=== PATIENT | female | born 1995 | race Caucasian/White ===

== ENCOUNTER → 2017-02-05 | Outpatient (CLI) | payer BC ==
[~2017-02-05] MED LIST: AMPH12.5 PO
[2017-02-09 10:37] LABS: CHLAMYDIA TRACH RNA*** NOT DETECTED (NOT DETECTED); GC (NEIS GONORRHOEAE)RNA** NOT DETECTED (NOT DETECTED)
== END | disposition home or self-care (01) ==
LOC: C.LABSPEC 13:26
PROVIDERS: ATTEND Family Medicine
DX: Z11.3 Encounter for screening for infections with a predominantly sexual mode of transmission (principal)

== ENCOUNTER → 2017-02-05 | Outpatient (CLI) | payer BC | END | disposition home or self-care (01) | LOC: C.PAPS 14:23 | PROVIDERS: ATTEND Family Medicine | DX: Z12.72 Encounter for screening for malignant neoplasm of vagina (principal) ==

== ENCOUNTER 2025-02-10 07:40 | Inpatient (IN) ==
[2025-02-10] MEDS ORDERED: LIDOCAINE 1% LOCAL 20 ML VIAL INFIL PRN (08:45)
[2025-02-10 09:11] LABS: Hematocrit (blood only) 35.0 % (37.0-47.0); Hemoglobin 12.3 g/dl (12.0-16.0); Mean Corpuscular Hemoglobin 30.5 pg (25.0-34.0); Mean Corpuscular Volume 86.8 fL (80.0-100.0); Platelet Count 252 K/uL (130-400); RDW Standard Deviation 43.6 fL (36.4-46.3); Red Blood Count 4.03 M/uL (4.20-5.40); White Blood Count 13.53 K/ul (4.8-10.8)
--- NOTE | 2025-02-10 09:14 | History & Physical Report ---
Date of Service February 10, 2025 Assessment & Plan (1) Encounter for induction of labor: Plan Admit pt; iv, labs, add pitocin as needed; Baby; FHR category I Admission and Anticipated Discharge Date Admission Date: February 10, 2025 History of Present Illness Primary Care Provider: Ariane Montanez Contractions: Negative Painful: Negative Leaky Fluid: Negative Movement: Present Pt is a 29 yo Female, , 42 wks 3 day, arrives to Labor & Delivery for induction of labor. Pt appears AOx3 and is accompanied by her to the unit and Delivery Plans ADHD *may opt to go back on meds? hep b non-immune 2 Vessel Cord * Echo [facility]-09/27/24 - nl *Serial Growth US starting @28wks *NSTs @36wks metapneumovirus at 26wks placental alvarez IOL 02/10/25 Labs: Rhesus Positive, GBS Negative Hx of STDs: Negative Allergies Allergy/AdvReac Type Severity Reaction Status Date / Time alcohol Allergy Intermediate Vomiting Verified 02/09/25 10:32 Home Medications Medication Instructions Recorded Confirmed Type famotidine 10 mg tablet 10 mg PO DAILY 02/10/25 02/10/25 History vits no.124-ferrous fum 1 tab PO DAILY 02/10/25 02/10/25 History 27 mg iron-folic acid 800 mcg tablet ( Vitamin) Patient History Medical History Varicella vaccination Anemia Fibrous dysplasia (monostotic), other site mandible Surgical History History of mandibular surgery S/P tonsillectomy and adenoidectomy S/P wisdom tooth extraction Family History Grandfather (Maternal) Alcoholism Grandmother (Maternal) Alcoholism Mother Rheumatoid arthritis Denies family history of Ovarian cancer Breast cancer Colorectal cancer Social History (Updated 02/10/25 @ 07:57 by Merari Browning RN) Smoking Status: Never smoker Do You Dip or Chew Tobacco: No; Hx Alcohol Use: No Hx Substance Use: No Preferred Language: Wallisian Visual Impairment: No Limitations Hearing Ability: Normal Sheriffs Required: No Beliefs That Will Affect Care: None marital status: Single marital status details: Phil Mckay (30) [phone] Current Living Situation: Significant Other Current Living Situation Comment: Lives with FOB- 1 cat- FOB changing litter current occupational status: employed current occupation: [employer] Tools Feels Safe at Home: Yes Safety Concerns: Feels Safe At This Time Diet: regular Dental Care, Regularly: Yes Gender Identity: Female Assistive Devices: None OB History INFORMATION ARCHITECT History No new findings Review of Systems All systems reviewed & are unremarkable except as noted in HPI & below i. Denies fever, chills, sweats ii. Denies SOB, difficulty breathing, chest pain, palpitations, chest pressure iii. Denies breast pain. iv. Denies Dysuria v. Denies headache or changes in vision. Physical Exam Constitutional: WD/WN, vitals as above Respiratory: normal respiratory effort, lungs clear to auscultation Cardiovascular: RRR, no murmur, no edema Gastrointestinal (Abdomen): normal bowel sounds, soft, nontender, no hepatosplenomegaly Skin: no rashes, warm and dry Genitourinary: As per Dr. Kilgore's attestation Results & Data Vital Signs (Past 12 Hours) Vital Signs Temp Pulse Resp BP 02/10/25 08:14 37.2 C 20 02/10/25 08:03 90 02/10/25 08:03 135/89 02/10/25 07:49 98 H 134/92 Laboratory Results Labs Lab Results OB Labs: Blood Type O Positive 07/07/24 Antibody Screen NEGATIVE 07/07/24 Hgb 11.3 g/dl (12.0-16.0) L 11/09/24 Hct 34.3 % (37.0-47.0) L 11/09/24 MCV 84.5 fL (80.0-100.0) 07/07/24 Plt Count 381 K/uL (130-400) 07/07/24 Rubella IgG Antibody Immune (Immune) 07/07/24 Treponema pallidum Ab Negative (Negative) 11/09/24 Hep Bs Antigen Negative (Negative) 07/07/24 Hepatitis C Antibody Negative (Negative) 07/07/24 HIV 1&2 Ab/P24 Ag 4thGn Negative (Negative) 07/07/24 Glucose 1 Hr 50 gm 132 mg/dl (70-130) H 11/09/24 OB Optional Labs: Chlamydia trachomatis RNA Not Detected (NotDetected) 07/08/24 Neisseria gonorrhoeae RNA Not Detected (NotDetected) 07/08/24 Thyroid Stimulating Hormone (TSH) 2.529 uIu/ml (0.300-4.500) 12/22/23 Labs Reviewed: Declines genetics--mln gbs neg Code Status & VTE Plan VTE Prophylaxis Plan VTE Prophylaxis will be ordered: No Monitoring External Monitor Baseline: 120 Variability: Moderate Accelerations: 15 x 15 Decelerations: None Tocodynamometer 1.5 to 2 minutes between contractions Supervising Physician Co-Signing Physician Notes Resident Physician Supervision Note: I interviewed and examined the patient. Discussed with Dr. Mckinney and agree with findings and plan as documented in the note. Any exceptions or clarifications are listed here: iol for postdates 41 2/7 weeks. cx 2/90/-2. complicated by 2vc. on admission, minimal contractions. fetus category one. Plan pitocin induction, arom when indicated. epidural on demand. Anticipate . Documented By: Albania Kilgore MD, FACOG Resident Activity Tracking Resident Involvement: Resident Care Provided Care Provided: OB Delivery
[2025-02-10] MEDS: LACTATED RINGER'S 1,000 ML IV PRN (09:22)
[2025-02-10] MEDS: OXYTOCIN 30 UNITS/NSS 30 UNITS/500 ML BAG IV PRN ×2 (09:28→21:59)
--- NOTE | 2025-02-10 15:29 | Labor Progress Brief Note ---
Date of Service February 10, 2025 Subjective noting contractions Assessment & Plan (1) Encounter for induction of labor: Plan continue current management, fetus category one. Admission and Anticipated Discharge Date Admission Date: February 10, 2025 Physical Exam Physical Exam: cx--2/90/-2 arom--minimal thin fluid toco--q2-3min, pit at 16 Results & Data Vital Signs (Past 12 Hours) Vital Signs Temp Pulse Resp BP 02/10/25 15:24 93 H 02/10/25 15:24 131/82 02/10/25 14:16 80 18 02/10/25 14:16 123/74 02/10/25 13:17 85 02/10/25 13:17 124/80 02/10/25 13:05 81 02/10/25 13:05 137/95 02/10/25 12:12 36.7 C 20 02/10/25 12:12 85 02/10/25 12:12 134/85 02/10/25 11:04 75 02/10/25 11:04 116/71 02/10/25 10:49 76 02/10/25 10:49 120/71 02/10/25 10:35 76 02/10/25 10:35 131/76 02/10/25 10:18 72 02/10/25 10:18 129/74 02/10/25 08:14 37.2 C 20 02/10/25 08:03 90 02/10/25 08:03 135/89 02/10/25 07:49 98 H 134/92 Coding Level of Care Code None Diagnoses Encounter for induction of labor Z34.90
[2025-02-10] MEDS ORDERED: ONDANSETRON INJ 2 MG/ML 2 ML VIAL IV PRN ×2 (15:58)
[2025-02-10] MEDS ORDERED: SODIUM CHLORIDE 0.9% PF INJ 10 ML VIAL EPI STA (15:58)
[2025-02-10] MEDS ORDERED: BUPIVACAINE 0.25% PF 30 ML VIAL EPI PRN (15:58)
[2025-02-10] MEDS ORDERED: NALOXONE HCL 1 MG in SODIUM CHLORIDE 0.9% 1,000 ML IV PRN (15:58)
[2025-02-10] MEDS ORDERED: diphenhydrAMINE 50 MG/ML VIAL IV PRN (15:58)
[2025-02-10] MEDS ORDERED: NALOXONE HCL 0.4 MG/1 ML VIAL/CARP IV PRN (15:58)
[2025-02-10] MEDS ORDERED: ROPIVACAINE 0.5% PF 5 MG/ML 20 ML VIAL EPI PRN (15:58)
[2025-02-10] MEDS ORDERED: SODIUM CHLORIDE 0.9% PF INJ 10 ML VIAL EPI PRN (15:58)
[2025-02-10] MEDS ORDERED: NALBUPHINE HCL INJ 10 MG/ML AMP IV PRN (15:58)
[2025-02-10] MEDS ORDERED: LIDOCAINE 2%/EPINEPHRINE 1:200,000 20 ML PF EPI STA (15:58)
[2025-02-10] MEDS ORDERED: LIDOCAINE 2% MPF LOCAL 5 ML VIAL EPI PRN (15:58)
[2025-02-10] MEDS ORDERED: BUPIVACAINE 0.25% PF 30 ML VIAL EPI STA (15:58)
[2025-02-10] MEDS ORDERED: fentANYL 2 MCG/ML BUPIVacaine 0.125%-NSS 100ML BAG EPI PRN (15:58)
--- NOTE | 2025-02-10 15:58 | Anesthesiology Consultation ---
Date of Service February 10, 2025 Assessment & Plan Chart Review Chart Review: Patient NOT seen in Pre Admission Testing and Acceptable Risk for Labor Epidural Consults Requested none History Height/Weight Height: 5 ft 8 in Weight: 94.846 kg Allergies Allergy/AdvReac Type Severity Reaction Status Date / Time alcohol Allergy Intermediate Vomiting Verified 02/09/25 10:32 Medications Home Medications Medication Instructions Recorded Confirmed Last Taken famotidine 10 mg tablet 10 mg PO DAILY 02/10/25 02/10/25 02/09/25 20:00 vits no.124-ferrous fum 1 tab PO DAILY 02/10/25 02/10/25 02/10/25 06:30 27 mg iron-folic acid 800 mcg tablet ( Vitamin) Active Medications Generic Name Dose Route Start Last Admin Trade Name Freq PRN Reason Stop Dose Admin Oxytocin 30 units in 500 mls @ 18 mls/hr 02/10/25 08:44 02/10/25 15:30 Pitocin 30 Units/Nss IV 02/12/25 08:43 1.08 units/hr .Q24H PRN 18 mls/hr Labor Induction/Augmentation Titration Protocol 1.08 UNITS/HR Lactated Ringer's 1,000 mls @ 125 mls/hr 02/10/25 08:45 02/10/25 09:22 Lr IV 02/12/25 08:44 125 mls/hr .Q8H PRN Administration L&D Protocol Protocol Past Medical History Medical History Varicella vaccination Anemia Fibrous dysplasia (monostotic), other site mandible Past Family History Family History Grandfather (Maternal) Alcoholism Grandmother (Maternal) Alcoholism Mother Rheumatoid arthritis Denies family history of Ovarian cancer Breast cancer Colorectal cancer Past Surgical History Surgical History History of mandibular surgery S/P tonsillectomy and adenoidectomy S/P wisdom tooth extraction Social History Smoking Status: Never smoker Do You Dip or Chew Tobacco: No Hx Alcohol Use: No Hx Substance Use: No Physical Exam Vital Signs Last Vital Signs Temp 98.1 F 02/10/25 15:30 Pulse 93 H 02/10/25 15:24 Resp 20 02/10/25 15:30 BP 131/82 02/10/25 15:24 Testing Laboratory Results 02/10/25 08:59
[2025-02-10] MEDS: SODIUM CHLORIDE 0.9% PF INJ 10 ML VIAL ONE (16:21)
[2025-02-10] MEDS: BUPIVACAINE 0.25% PF 30 ML VIAL ONE (16:22)
[2025-02-10] MEDS: LIDOCAINE 2%/EPINEPHRINE 1:200,000 20 ML PF ONE (16:23)
[2025-02-10] MEDS: fentANYL 2 MCG/ML BUPIVacaine 0.125%-NSS 100ML BAG ONE (16:24)
[2025-02-10] MEDS: CALCIUM CARBONATE 500 MG CHEWABLE TAB PO PRN (16:55)
--- NOTE | 2025-02-10 19:32 | Labor Progress Brief Note ---
Date of Service February 10, 2025 Subjective comfortable Assessment & Plan (1) Encounter for induction of labor: Plan begin second stage Admission and Anticipated Discharge Date Admission Date: February 10, 2025 Physical Exam Physical Exam: cx--c/c/+1, bloody show toco--q1-2min, pit at 20 efm--130s with mod variability, early, variables Results & Data Vital Signs (Past 12 Hours) Vital Signs Temp Pulse Resp BP Pulse Ox O2 Del Method 02/10/25 19:29 100 02/10/25 19:29 77 02/10/25 19:28 76 02/10/25 19:28 123/79 02/10/25 19:24 99 02/10/25 19:24 66 02/10/25 19:19 100 02/10/25 19:19 65 02/10/25 19:15 63 02/10/25 19:15 117/77 02/10/25 19:14 100 02/10/25 19:14 65 02/10/25 19:09 100 02/10/25 19:09 67 02/10/25 19:05 36.5 C 18 02/10/25 19:05 Room Air 02/10/25 19:05 18 02/10/25 19:05 36.5 C 18 02/10/25 19:04 100 02/10/25 19:04 70 02/10/25 18:59 100 02/10/25 18:59 67 02/10/25 18:58 66 02/10/25 18:58 119/77 02/10/25 18:54 100 02/10/25 18:54 68 02/10/25 18:49 100 02/10/25 18:49 64 02/10/25 18:44 62 02/10/25 18:44 122/77 02/10/25 18:44 100 02/10/25 18:44 66 02/10/25 18:39 100 02/10/25 18:39 62 02/10/25 18:34 100 02/10/25 18:34 61 02/10/25 18:29 100 02/10/25 18:29 65 02/10/25 18:28 64 02/10/25 18:28 120/75 02/10/25 18:26 36.7 C 16 02/10/25 18:24 100 02/10/25 18:24 70 02/10/25 18:19 100 02/10/25 18:19 67 02/10/25 18:14 100 02/10/25 18:14 57 L 02/10/25 18:14 116/64 02/10/25 18:09 100 02/10/25 18:09 62 02/10/25 18:04 100 02/10/25 18:04 61 02/10/25 17:59 100 02/10/25 17:59 61 02/10/25 17:58 60 02/10/25 17:58 114/59 L 02/10/25 17:54 100 02/10/25 17:54 64 02/10/25 17:49 100 02/10/25 17:49 63 02/10/25 17:44 61 02/10/25 17:44 117/71 02/10/25 17:44 100 02/10/25 17:44 62 02/10/25 17:39 100 02/10/25 17:39 67 02/10/25 17:38 36.5 C 16 02/10/25 17:34 100 02/10/25 17:34 64 02/10/25 17:29 100 02/10/25 17:29 71 02/10/25 17:24 100 02/10/25 17:24 66 02/10/25 17:19 100 02/10/25 17:19 64 02/10/25 17:14 100 02/10/25 17:14 69 02/10/25 17:13 71 02/10/25 17:13 127/83 02/10/25 17:09 100 02/10/25 17:09 62 02/10/25 17:04 99 02/10/25 17:04 62 02/10/25 17:00 69 02/10/25 17:00 124/80 02/10/25 16:59 99 02/10/25 16:59 63 02/10/25 16:54 98 02/10/25 16:54 64 02/10/25 16:49 98 02/10/25 16:49 66 02/10/25 16:44 99 02/10/25 16:44 65 02/10/25 16:43 67 02/10/25 16:43 126/76 02/10/25 16:39 99 09/05/25 16:39 64 02/10/25 16:34 100 02/10/25 16:34 79 02/10/25 16:29 98 02/10/25 16:29 73 02/10/25 16:28 68 02/10/25 16:28 125/68 02/10/25 16:26 74 02/10/25 16:26 124/60 02/10/25 16:24 73 02/10/25 16:24 117/74 02/10/25 16:24 99 02/10/25 16:24 72 02/10/25 16:22 70 02/10/25 16:22 117/68 02/10/25 16:20 75 02/10/25 16:20 36.6 C 20 140/78 02/10/25 16:19 99 02/10/25 16:19 74 02/10/25 16:18 69 02/10/25 16:18 124/78 02/10/25 16:15 76 02/10/25 16:15 133/69 02/10/25 16:14 99 02/10/25 16:14 75 02/10/25 16:09 99 02/10/25 16:09 84 02/10/25 15:30 36.7 C 20 02/10/25 15:24 93 H 02/10/25 15:24 131/82 02/10/25 14:16 80 18 02/10/25 14:16 123/74 02/10/25 13:17 85 02/10/25 13:17 124/80 02/10/25 13:05 81 02/10/25 13:05 137/95 02/10/25 12:12 36.7 C 20 02/10/25 12:12 85 02/10/25 12:12 134/85 02/10/25 11:04 75 02/10/25 11:04 116/71 02/10/25 10:49 76 02/10/25 10:49 120/71 02/10/25 10:35 76 02/10/25 10:35 131/76 02/10/25 10:18 72 02/10/25 10:18 129/74 02/10/25 08:14 37.2 C 20 02/10/25 08:03 90 02/10/25 08:03 135/89 02/10/25 07:49 98 H 134/92 Coding Level of Care Code None Diagnoses Encounter for induction of labor Z34.90
--- NOTE | 2025-02-10 21:01 | Labor Progress Brief Note ---
Date of Service February 10, 2025 Subjective Pushing with good effort but being hampered by severe reflux causing her to gag and dry heave. Pushing for a little over an hour, 30 minutes in knee chest. Assessment & Plan (1) Encounter for induction of labor: Plan good effort but has not made a lot of progress. FEtus overall reassuring. Continue pushing. Admission and Anticipated Discharge Date Admission Date: February 10, 2025 Physical Exam Physical Exam: cx--c/c/+1 toco--q2min, pit at 20 efm--120s with mod varability, decels with pushing Results & Data Vital Signs (Past 12 Hours) Vital Signs Temp Pulse Resp BP Pulse Ox O2 Del Method 02/10/25 20:59 98 02/10/25 20:59 119 H 02/10/25 20:54 99 02/10/25 20:54 116 H 02/10/25 20:49 98 02/10/25 20:49 141 H 02/10/25 20:44 99 02/10/25 20:44 116 H 02/10/25 20:38 96 02/10/25 20:38 117 H 02/10/25 20:34 98 02/10/25 20:34 99 H 02/10/25 20:30 20 02/10/25 20:30 20 02/10/25 20:29 99 02/10/25 20:29 83 02/10/25 20:29 137/72 02/10/25 20:23 99 02/10/25 20:23 98 H 02/10/25 20:19 98 02/10/25 20:19 101 H 02/10/25 20:15 20 02/10/25 20:15 20 02/10/25 20:14 100 02/10/25 20:14 115 H 02/10/25 20:09 100 02/10/25 20:09 88 02/10/25 20:04 99 02/10/25 20:04 92 H 02/10/25 19:59 100 02/10/25 19:59 89 02/10/25 19:54 100 02/10/25 19:54 74 02/10/25 19:49 100 02/10/25 19:49 100 H 02/10/25 19:44 100 02/10/25 19:44 111 H 02/10/25 19:39 100 02/10/25 19:39 76 02/10/25 19:34 100 02/10/25 19:34 79 02/10/25 19:30 18 02/10/25 19:30 18 02/10/25 19:29 100 02/10/25 19:29 77 02/10/25 19:28 76 02/10/25 19:28 123/79 02/10/25 19:24 99 02/10/25 19:24 66 02/10/25 19:19 100 02/10/25 19:19 65 02/10/25 19:15 63 02/10/25 19:15 117/77 02/10/25 19:14 100 02/10/25 19:14 65 02/10/25 19:09 100 02/10/25 19:09 67 02/10/25 19:05 36.5 C 18 02/10/25 19:05 Room Air 02/10/25 19:05 18 02/10/25 19:05 36.5 C 18 02/10/25 19:04 100 02/10/25 19:04 70 02/10/25 18:59 100 02/10/25 18:59 67 02/10/25 18:58 66 02/10/25 18:58 119/77 02/10/25 18:54 100 02/10/25 18:54 68 02/10/25 18:49 100 02/10/25 18:49 64 02/10/25 18:44 62 02/10/25 18:44 122/02/10/25 18:44 100 02/10/25 18:44 66 02/10/25 18:39 100 02/10/25 18:39 62 02/10/25 18:34 100 02/10/25 18:34 61 02/10/25 18:29 100 02/10/25 18:29 65 02/10/25 18:28 64 02/10/25 18:28 120/02/10/25 18:26 36.7 C 16 02/10/25 18:24 100 02/10/25 18:24 70 02/10/25 18:19 100 02/10/25 18:19 67 02/10/25 18:14 100 02/10/25 18:14 57 L 02/10/25 18:14 116/64 02/10/25 18:09 100 02/10/25 18:09 62 02/10/25 18:04 100 02/10/25 18:04 61 02/10/25 17:59 100 02/10/25 17:59 61 02/10/25 17:58 60 02/10/25 17:58 114/59 L 02/10/25 17:54 100 02/10/25 17:54 64 02/10/25 17:49 100 02/10/25 17:49 63 02/10/25 17:44 61 02/10/25 17:44 117/71 02/10/25 17:44 100 02/10/25 17:44 62 02/10/25 17:39 100 02/10/25 17:39 67 02/10/25 17:38 36.5 C 16 02/10/25 17:34 100 02/10/25 17:34 64 02/10/25 17:29 100 02/10/25 17:29 71 02/10/25 17:24 100 02/10/25 17:24 66 02/10/25 17:19 100 02/10/25 17:19 64 02/10/25 17:14 100 02/10/25 17:14 69 02/10/25 17:13 71 02/10/25 17:13 127/83 02/10/25 17:09 100 02/10/25 17:09 62 02/10/25 17:04 99 02/10/25 17:04 62 02/10/25 17:00 69 02/10/25 17:00 124/80 02/10/25 16:59 99 02/10/25 16:59 63 02/10/25 16:54 98 02/10/25 16:54 64 02/10/25 16:49 98 02/10/25 16:49 66 02/10/25 16:44 99 02/10/25 16:44 65 02/10/25 16:43 67 02/10/25 16:43 126/76 02/10/25 16:39 99 02/10/25 16:39 64 02/10/25 16:34 100 02/10/25 16:34 79 02/10/25 16:29 98 02/10/25 16:29 73 02/10/25 16:28 68 02/10/25 16:28 125/68 02/10/25 16:26 74 02/10/25 16:26 124/60 02/10/25 16:24 73 02/10/25 16:24 117/74 02/10/25 16:24 99 02/10/25 16:24 72 02/10/25 16:22 70 02/10/25 16:22 117/68 02/10/25 16:20 75 02/10/25 16:20 36.6 C 20 140/78 02/10/25 16:19 99 02/10/25 16:19 74 02/10/25 16:18 69 02/10/25 16:18 124/78 02/10/25 16:15 76 02/10/25 16:15 133/69 02/10/25 16:14 99 02/10/25 16:14 75 02/10/25 16:09 99 02/10/25 16:09 84 02/10/25 15:30 36.7 C 20 02/10/25 15:24 93 H 02/10/25 15:24 131/82 02/10/25 14:16 80 18 02/10/25 14:16 123/74 02/10/25 13:17 85 02/10/25 13:17 124/80 02/10/25 13:05 81 02/10/25 13:05 137/95 02/10/25 12:12 36.7 C 20 02/10/25 12:12 85 02/10/25 12:12 134/85 02/10/25 11:04 75 02/10/25 11:04 116/71 02/10/25 10:49 76 02/10/25 10:49 120/71 02/10/25 10:35 76 02/10/25 10:35 131/76 02/10/25 10:18 72 02/10/25 10:18 129/74 Coding Level of Care Code None Diagnoses Encounter for induction of labor Z34.90
[2025-02-10] MEDS: METHYLERGONOVINE MALEATE 0.2 MG/ML AMP IM ONE (21:40)
--- NOTE | 2025-02-10 22:09 | Delivery Summary ---
Vaginal Delivery Summary Date of Service February 10, 2025 Vaginal Delivery Summary and 2nd Degree LAC (bilateral labial) Pre-operative Diagnosis: at 41 2/7 iol Post-operative Diagnosis: same Procedure: pitocin iol arom epidural second degree with bilateral labial lacs and repair QBL: 317cc Anesthesia: epidural Procedure: The patient pushed for about 2 hours to deliver a viable female in brigette position. The nose and mouth were bulb suctioned on the perineum, a loose nuchal cord was reduced and the rest of the was then delivered without difficulty. The baby was vigorous. The nose and mouth were again bulb suctioned and the was placed in the maternal abdomen for drying and attention. Cord was clamped and cut at one minute of lief. Cord blood and segment obtained. Placenta delivered spontaneous, intact with a three vessel cord. Cervix/sulci/rectum were intact. A small second degree perineal laceration and bilateral labial lacs were repaired in the normal standard fashion. Hemostasis obtained with dilute pitocin and fundal massage and IM methergine. Apgars were 7/8. Mother and baby doing well at the end of the delivery. [facility] Vaginal Delivery Charge Delivery Type Details: and 2nd Degree LAC (bilateral labial)
[2025-02-10] MEDS ORDERED: OXYTOCIN 30 UNITS/NSS 30 UNITS/500 ML BAG IV PRN ×2 (22:27)
[2025-02-10] MEDS ORDERED: ACETAMINOPHEN 325 MG TAB PO PRN ×2 (22:27)
[2025-02-10] MEDS ORDERED: IBUPROFEN 600 MG TAB PO PRN ×2 (22:27)
[2025-02-10] MEDS ORDERED: HYDROCORTISONE ACETATE 25 MG SUPP PR PRN ×2 (22:27)
[2025-02-10] MEDS ORDERED: BENZOCAINE 20% SPRY 85 APPLN/85 GM CAN EXT PRN (22:27)
[2025-02-10] MEDS ORDERED: METHYLERGONOVINE MALEATE 0.2 MG/ML AMP IM ONE (22:27)
[2025-02-10] MEDS: DIPHTHER/TETAN/PERTUS Vaccine (Tdap, Adol/Adult) 0.5mL IM ONE (23:02)
[2025-02-10] MEDS: BENZOCAINE 20% SPRY 85 APPLN/85 GM CAN EXT PRN (23:52)
[2025-02-11 07:15] LABS: Hematocrit (blood only) 34.6 % (37.0-47.0); Hemoglobin 11.9 g/dl (12.0-16.0)
[2025-02-11] MEDS: DOCUSATE SODIUM 100 MG CAP PO SCH (07:33)
[2025-02-11] MEDS: PRENATAL VITAMIN 1 TAB PO SCH (07:33)
[2025-02-11] MEDS ORDERED: DOCUSATE SODIUM 100 MG CAP PO SCH (08:00)
[2025-02-11] MEDS ORDERED: PRENATAL VITAMIN 1 TAB PO SCH (08:00)
--- NOTE | 2025-02-11 08:10 | Obstetrical Progress Note ---
Date of Service <Fadia Mckinney MD - Last Filed: 02/11/25 08:10> February 11, 2025 Assessment & Plan <Fadia Mckinney MD - Last Filed: 02/11/25 08:10> (1) care following vaginal delivery: Plan -Stable routine care. Breast feeding. Rhesus Positive. Rubella Immune. Continue to monitor <Albania Kilgore MD, FACOG - Last Filed: 02/11/25 08:17> (1) care following vaginal delivery: Subjective <Fadia Mckinney MD - Last Filed: 02/11/25 08:10> Ambulation: ambulating normally Voiding: no voiding problems Passing Gas:: Yes Diet Tolerance:: regular diet Lochia:: Small Feeding Type:: breast feeding Current Pain Level(1-10): 0 Review of Systems All systems reviewed & are unremarkable except as noted in HPI & below i. Denies fever, chills, sweats ii. Denies SOB, difficulty breathing, chest pain, palpitations, chest pressure iii. Denies breast pain. iv. Denies Dysuria v. Denies headache or changes in vision. Physical Exam <Fadia Mckinney MD - Last Filed: 02/11/25 08:10> Constitutional WD/WN, vitals as above Respiratory normal respiratory effort, lungs clear to auscultation Cardiovascular RRR, no murmur, no edema Gastrointestinal (Abdomen) normal bowel sounds, soft, nontender, no hepatosplenomegaly Skin no rashes, warm and dry Psychiatric A+Ox3, euthymic affect Genitourinary On palpation of abdomen, uterus is firm and has begun involution, at approximatly 1cm/day Results & Data <Fadia Mckinney MD - Last Filed: 02/11/25 08:10> Vital Signs (Past 12 Hours) Vital Signs Temp Pulse Pulse Resp BP BP Pulse Ox 02/11/25 04:05 02/11/25 04:05 36.9 C 78 18 116/74 97 02/11/25 00:30 02/11/25 00:30 36.8 C 84 18 120/81 98 02/10/25 23:45 18 02/10/25 23:45 72 02/10/25 23:45 128/85 02/10/25 23:31 78 02/10/25 23:31 145/87 H 02/10/25 23:15 18 02/10/25 23:15 86 02/10/25 23:15 141/74 H 02/10/25 23:00 80 02/10/25 23:00 139/76 02/10/25 22:46 78 02/10/25 22:46 131/73 02/10/25 22:45 18 02/10/25 22:31 73 02/10/25 22:31 150/89 H 02/10/25 22:30 18 02/10/25 22:16 77 02/10/25 22:16 122/87 02/10/25 22:15 18 02/10/25 22:01 96 H 02/10/25 22:01 122/83 02/10/25 22:00 18 02/10/25 21:59 98 02/10/25 21:59 88 02/10/25 21:54 98 02/10/25 21:54 90 02/10/25 21:49 97 02/10/25 21:49 98 H 02/10/25 21:45 18 02/10/25 21:45 99 H 02/10/25 21:45 125/87 02/10/25 21:44 99 02/10/25 21:44 105 H 02/10/25 21:39 100 02/10/25 21:39 100 H 02/10/25 21:37 89 02/10/25 21:37 122/79 02/10/25 21:34 96 02/10/25 21:34 92 H 02/10/25 21:30 37.3 C 02/10/25 21:29 94 02/10/25 21:29 124 H 02/10/25 21:24 97 02/10/25 21:24 123 H 02/10/25 21:19 99 02/10/25 21:19 97 H 02/10/25 21:15 20 02/10/25 21:15 20 02/10/25 21:14 99 02/10/25 21:14 104 H 02/10/25 21:09 98 02/10/25 21:09 91 H 02/10/25 21:04 98 02/10/25 21:04 92 H 02/10/25 21:00 20 09/05/25 21:00 20 02/10/25 20:59 98 02/10/25 20:59 119 H 02/10/25 20:54 99 02/10/25 20:54 116 H 02/10/25 20:49 98 02/10/25 20:49 141 H 02/10/25 20:45 20 02/10/25 20:45 20 02/10/25 20:44 99 02/10/25 20:44 116 H 02/10/25 20:38 96 02/10/25 20:38 117 H 02/10/25 20:34 98 02/10/25 20:34 99 H 02/10/25 20:30 20 02/10/25 20:30 20 02/10/25 20:29 99 02/10/25 20:29 83 02/10/25 20:29 137/72 02/10/25 20:23 99 02/10/25 20:23 98 H 02/10/25 20:19 98 02/10/25 20:19 101 H 02/10/25 20:15 20 02/10/25 20:15 20 02/10/25 20:14 100 02/10/25 20:14 115 H 02/10/25 20:09 100 02/10/25 20:09 88 O2 Del Method 02/11/25 04:05 Room Air 02/11/25 04:05 Room Air 02/11/25 00:30 Room Air 02/11/25 00:30 Room Air 02/10/25 23:45 02/10/25 23:45 02/10/25 23:45 02/10/25 23:31 02/10/25 23:31 02/10/25 23:15 02/10/25 23:15 02/10/25 23:15 02/10/25 23:00 02/10/25 23:00 02/10/25 22:46 02/10/25 22:46 02/10/25 22:45 02/10/25 22:31 02/10/25 22:31 02/10/25 22:30 02/10/25 22:16 02/10/25 22:16 02/10/25 22:15 02/10/25 22:01 02/10/25 22:01 02/10/25 22:00 02/10/25 21:59 02/10/25 21:59 02/10/25 21:54 02/10/25 21:54 02/10/25 21:49 02/10/25 21:49 02/10/25 21:45 02/10/25 21:45 02/10/25 21:45 02/10/25 21:44 02/10/25 21:44 02/10/25 21:39 02/10/25 21:39 02/10/25 21:37 02/10/25 21:37 02/10/25 21:34 02/10/25 21:34 02/10/25 21:30 02/10/25 21:29 02/10/25 21:29 02/10/25 21:24 02/10/25 21:24 02/10/25 21:19 02/10/25 21:19 02/10/25 21:15 02/10/25 21:15 02/10/25 21:14 02/10/25 21:14 02/10/25 21:09 02/10/25 21:09 02/10/25 21:04 02/10/25 21:04 02/10/25 21:00 02/10/25 21:00 02/10/25 20:59 02/10/25 20:59 02/10/25 20:54 02/10/25 20:54 02/10/25 20:49 02/10/25 20:49 02/10/25 20:45 02/10/25 20:45 02/10/25 20:44 02/10/25 20:44 02/10/25 20:38 02/10/25 20:38 02/10/25 20:34 02/10/25 20:34 02/10/25 20:30 02/10/25 20:30 02/10/25 20:29 02/10/25 20:29 02/10/25 20:29 02/10/25 20:23 02/10/25 20:23 02/10/25 20:19 02/10/25 20:19 02/10/25 20:15 02/10/25 20:15 02/10/25 20:14 02/10/25 20:14 02/10/25 20:09 02/10/25 20:09 Supervising Physician <Albania Kilgore MD, FACOG - Last Filed: 02/11/25 08:17> Co-Signing Physician Notes Resident Physician Supervision Note: I interviewed and examined the patient. Discussed with Dr. Mckinney and agree with findings and plan as documented in the note. Any exceptions or clarifications are listed here: Doing well. ff/nt at u, notes tailbone pain is improved, just sore now. Routine care. Documented By: Albania Kilgore MD, FACOG
--- NOTE | 2025-02-11 08:22 | Anesthesia Procedure Note ---
Date of Service February 11, 2025 Anesthesia Post Epidural Note Vital Signs Vital Signs: Temp Pulse Resp BP Pulse Ox O2 Del Method 36.9 C 78 18 116/74 97 Room Air 02/11/25 04:05 02/11/25 04:05 02/11/25 04:05 02/11/25 04:05 02/11/25 04:05 02/11/25 04:05 Pain Intensity Abdomen: Pain Intensity: 2 Notes Mental Status: alert / awake / arousable Nausea / Vomiting: adequately controlled Pain: adequately controlled Airway Patency, RR, SpO2: stable & adequate BP & HR: stable & adequate Hydration State: stable & adequate Neuraxial Anesthesia: was administered and sensory block is resolving Anesthetic Complications: no major complications apparent Epidural: Removed without complications and With tip intact
[2025-02-11 11:55] VITALS: O2SAT 98
[2025-02-12 07:33] VITALS: BP 118/78; PULSE 84; RESP 16; TEMP 97.9
--- NOTE | 2025-02-12 08:48 | Obstetrical Progress Note ---
Date of Service February 12, 2025 Assessment & Plan (1) care following vaginal delivery: 29 yo PP2 from , doing well -Meeting all pp milestones -O+/rubella immune/ -f/u 6 weeks for appt, dc home Subjective Ambulation: ambulating normally Voiding: no voiding problems Passing Gas:: Yes Diet Tolerance:: regular diet Lochia:: Small Feeding Type:: breast feeding Pain well managed with medication Review of Systems Denies fevers, chills, n/v, FISH, CP, SOB Physical Exam Constitutional WD/WN, vitals as above no acute distress Respiratory normal respiratory effort, lungs clear to auscultation Cardiovascular RRR, no murmur, no edema Gastrointestinal (Abdomen) Percussion/Palpation: abdomen soft; abdomen nontender fundus firm at umbilicus and NT Musculoskeletal BLE symmetric, nonerythematous, nontender Results & Data Vital Signs (Past 12 Hours) Vital Signs Temp Pulse Resp BP Pulse Ox O2 Del Method 02/12/25 07:05 97.9 F 84 16 118/78 98 Room Air 02/11/25 23:26 97.7 F 80 18 122/82 98 Room Air
== END 2025-02-12 13:24 | disposition home or self-care (01) | DRG 807 ==
LOC: 4S1 07:40 → 4E2 02-11 00:05